=== PATIENT | female | born 1975 | race Native Hawaiian/Other Pacific Islander ===

== ENCOUNTER 2016-10-10 11:35 | Emergency (ER) | payer BC ==
[2016-10-10] MEDS ORDERED: Sodium Chloride 0.9% 1000 ML 1,000 ML IV STA (12:19)
[2016-10-10] MEDS ORDERED: TORAdol 30 mg Injection IV ONE (12:19)
[2016-10-10] MEDS ORDERED: Ativan 2 MG/1 ML VIAL IV ONE (12:20)
[2016-10-10] MEDS ORDERED: TORAdol 30 mg Injection ONE (12:30)
[2016-10-10] MEDS ORDERED: Sodium Chloride 0.9% 1000 ML 1,000 ML ONE (12:31)
[2016-10-10] MEDS ORDERED: Ativan 2 MG/1 ML VIAL ONE (12:31)
[2016-10-10 12:37] LABS: Lactic Acid 2.4 (0.4-2.0)
--- NOTE | 2016-10-10 12:42 | ERPHSYRPT ---
- History of Present Illness Time Seen by Provider: 10/10/16 12:11 Source: patient, family (sister) Patient Subjective Stated Complaint: pt states she has been depressed and not taking care of herself. she states she feels bad with a sore throat and cough. pt denies wanting to hurt herself. states she is shakey. states she is having a fibromyalgia flare-up. Triage Nursing Assessment: pt flushed, moist warm, dry. pt alert and oriented x3. pt crying and shaking. 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 She has hx of depression and anxiety. Worse lately. Ran out of her xanax a week ago but only takes it occasionally. She takes cymbalta, meloxicam, wellbutrin but has forgotten to take them in the past 3-4 days. She feels more depression. No suicide ideation. She has felt ill for one week. Chills, sweats, aches, mylagias. Feels like a fibromyalgia attack/flare. She has been upset. ALL: None Social: Nonsmoker, works retail, LMP 1 week ago. Allergies/Adverse Reactions: sulfamethoxazole [From Bactrim] Allergy (Verified 10/10/16 12:21) trimethoprim [From Bactrim] Allergy (Verified 10/10/16 12:21) Home Medications: Alprazolam 0.25 mg [xanAX 0.25 MG] 0.25 mg PO TIDPRN PRN 10/10/16 [History ] Bupropion HCl [Wellbutrin Sr] 0 mg PO DAILY 10/10/16 [History] Duloxetine HCl [Cymbalta] 60 mg PO DAILY 10/10/16 [History] Hx Tetanus, Diphtheria Vaccination/Date Given: Yes (up to date) Hx Influenza Vaccination/Date Given: No Hx Pneumococcal Vaccination/Date Given: No Immunizations Up to Date: Yes - Review of Systems Constitutional: Chills, Fatigue, Malaise, Weakness, No Fever Eyes: No Symptoms Ears, Nose, & Throat: Throat Pain Respiratory: No Cough Cardiac: No Chest Pain Abdominal/Gastrointestinal: Nausea, Diarrhea (intermittent), No Abdominal Pain Genitourinary Symptoms: No Dysuria Musculoskeletal: Myalgias, No Back Pain, No Injury Skin: No Rash Neurological: Headache, No Focal Weakness, No Parasthesia Psychological: Anxiety, Depression, Emotional Lability All Other Systems: Reviewed and Negative - Past Medical History Pertinent Past Medical History: Yes Musculoskeletal History: Fibromyalgia, Osteoarthritis, Rheumatoid Arthritis Psycho-Social History: Depression - Past Surgical History Past Surgical History: No - Social History Smoking Status: Never smoker Exposure to second hand smoke: No Drug Use: none Patient Lives Alone: No - Female History Hx Last Menstrual Period: 3 days ago - Nursing Vital Signs Nursing Vital Signs: Initial Vital Signs Temperature 99.5 F Temperature Source Rectal Pulse Rate 110 Respiratory Rate 20 Blood Pressure [Right Arm] 125/70 Pain Intensity 5 - Physical Exam General Appearance: alert, other (anxious, shaky) Eye Exam: PERRL/EOMI Ears, Nose, Throat Exam: normal ENT inspection, moist mucous membranes Neck Exam: normal inspection, non-tender, supple Respiratory Exam: normal breath sounds, lungs clear Cardiovascular Exam: regular rate/rhythm, No murmur Gastrointestinal/Abdomen Exam: soft, No tenderness, No distention, No mass, No guarding Back Exam: normal inspection Extremity Exam: normal inspection, normal range of motion Neurologic Exam: alert, oriented x 3, cooperative, sensation nml, No motor deficits Skin Exam: warm, dry, No rash SpO2 Interpretation: normal SpO2: 100 Oxygen Delivery: Room Air - Course Nursing assessment & vital signs reviewed: Yes - Radiology Exams cxr X-ray Interpretation: Teleradiologist Report (hyperinflated lungs) Ordered Tests: Active Orders 24 hr Category Date Time Status Clean Catch Urine Specimen STAT Care 10/10/16 12:19 Active IV Insertion STAT Care 10/10/16 12:19 Active CHEST 2 VIEWS (PA AND LAT) Stat Exams 10/10/16 12:19 Completed CBC W DIFF Stat Lab 10/10/16 12:35 Completed CMP Stat Lab 10/10/16 12:35 Completed CULTURE, THROAT Stat Lab 10/10/16 12:35 Received HCG QUALITATIVE,SERUM Stat Lab 10/10/16 12:35 Completed Lactic Acid Stat Lab 10/10/16 12:35 Results STREP SCREEN-BETA A Stat Lab 10/10/16 12:35 Completed UA W/ MICROSCOPIC Stat Lab 10/10/16 12:19 Completed Urine Triage Profile Stat Lab 10/10/16 12:19 Completed Medication Summary Discontinued Medications Generic Name Dose Route Start Last Admin Trade Name Brandon PRN Reason Stop Dose Admin Sodium Chloride 1,000 mls @ 999 mls/hr 10/10/16 12:19 10/10/16 12:33 Sodium Chloride 0.9% 1000 Ml IV 10/10/16 13:19 999 mls/hr .Q1H1M STA Administration Sodium Chloride Confirm 10/10/16 12:31 Sodium Chloride 0.9% 1000 Ml Administered 10/10/16 12:32 Dose 1,000 mls @ ud .ROUTE .STK-MED ONE Ketorolac Tromethamine 30 mg 10/10/16 12:19 10/10/16 12:33 Toradol 30 Mg Injection IV 10/10/16 12:20 30 mg STAT ONE Administration Ketorolac Tromethamine Confirm 10/10/16 12:30 Toradol 30 Mg Injection Administered 10/10/16 12:31 Dose 30 mg .ROUTE .STK-MED ONE Lorazepam 1 mg 10/10/16 12:20 10/10/16 12:33 Ativan 2 Mg/1 Ml Vial IV 10/10/16 12:21 1 mg STAT ONE Administration Lorazepam Confirm 10/10/16 12:31 Ativan 2 Mg/1 Ml Vial Administered 10/10/16 12:32 Dose 2 mg .ROUTE .STK-MED ONE Lab/Rad Data: Laboratory Result Diagrams 10/10/16 12:35 10/10/16 12:35 Laboratory Results 10/10/16 10/10/16 10/10/16 Range/Units 12:35 12:35 12:35 WBC (4.0-10.5) K/mm3 RBC (4.1-5.4) M/mm3 Hgb (12.0-16.0) gm/dl Hct (35-47) % MCV (78-100) fl MCH (26-32) pg MCHC (32-36) g/dl RDW (11.5-14.0) % Plt Count (150-450) K/mm3 MPV (6-9.5) fl Gran % (36.0-66.0) % Lymphocytes % (24.0-44.0) % Monocytes % (0.0-12.0) % Eosinophils % (0.00-5.0) % Basophils % (0.0-0.4) % Basophils # (0-0.4) Sodium (136-145) mEq/L Potassium (3.5-5.1) mEq/L Chloride (98-107) mEq/L Carbon Dioxide (21-32) mEq/L Anion Gap (5-15) MEQ/L BUN (9-20) mg/dL Creatinine (0.55-1.30) mg/dl Estimated GFR ML/MIN Glucose (70-110) MG/DL Lactic Acid (0.4-2.0) Calcium (8.5-10.1) mg/dL Total Bilirubin (0.2-1.0) mg/dL AST (15-37) U/L ALT (12-78) U/L Alkaline Phosphatase (46-116) U/L Serum Total Protein (6.4-8.2) gm/dL Albumin (3.4-5.0) g/dL Serum , Qual NEGATIVE (Negative) Ur Collection Type Urine Color (YELLOW) Urine Appearance (CLEAR) Urine pH (5-6) Ur Specific Douglas (1.005-1.025) Urine Protein (Negative) Urine Ketones (NEGATIVE) Urine Blood (0-5) Jack/ul Urine Nitrite (NEGATIVE) Urine Bilirubin (NEGATIVE) Urine Urobilinogen (0-1) mg/dL Ur Leukocyte Esterase (NEGATIVE) Urine Microscopic RBC (0-2) /HPF Urine Microscopic WBC (0-5) /HPF Ur Epithelial Cells (FEW) /HPF Urine Bacteria (NEGATIVE) /HPF Urine Mucus (NEGATIVE) /HPF Urine Glucose (NEGATIVE) mg/dL Urine Opiates Level (NEGATIVE) Ur Methadone (NEGATIVE) Urine Barbiturates (NEGATIVE) Ur Phencyclidine (PCP) (NEGATIVE) Urine Amphetamine (NEGATIVE) U Benzodiazepine Level (NEGATIVE) Urine Cocaine (NEGATIVE) Urine Marijuana (THC) (NEGATIVE) Influenza Type A Ag NEGATIVE (NEGATIVE) Influenza Type B Ag NEGATIVE (NEGATIVE) RSV (PCR) NEGATIVE (Negative) Streptococcus Screen NEGATIVE (Negative) Specimen Received 10/10/16 10/10/16 10/10/16 Range/Units 12:35 12:35 12:35 WBC 8.1 (4.0-10.5) K/mm3 RBC 4.42 (4.1-5.4) M/mm3 Hgb 14.1 (12.0-16.0) gm/dl Hct 41.6 (35-47) % MCV 94.1 (78-100) fl MCH 31.9 (26-32) pg MCHC 33.9 (32-36) g/dl RDW 13.2 (11.5-14.0) % Plt Count 378 (150-450) K/mm3 MPV 8.7 (6-9.5) fl Gran % 73.9 H (36.0-66.0) % Lymphocytes % 18.4 L (24.0-44.0) % Monocytes % 6.8 (0.0-12.0) % Eosinophils % 0.5 (0.00-5.0) % Basophils % 0.4 (0.0-0.4) % Basophils # 0.03 (0-0.4) Sodium 139 (136-145) mEq/L Potassium 3.7 (3.5-5.1) mEq/L Chloride 98 (98-107) mEq/L Carbon Dioxide 25.1 (21-32) mEq/L Anion Gap 19.5 H (5-15) MEQ/L BUN 5 L (9-20) mg/dL Creatinine 0.73 (0.55-1.30) mg/dl Estimated GFR > 60 ML/MIN Glucose 112 H (70-110) MG/DL Lactic Acid 2.4 H (0.4-2.0) Calcium 9.9 (8.5-10.1) mg/dL Total Bilirubin 0.40 (0.2-1.0) mg/dL AST 48 H (15-37) U/L ALT 45 (12-78) U/L Alkaline Phosphatase 95 (46-116) U/L Serum Total Protein 9.0 H (6.4-8.2) gm/dL Albumin 4.6 (3.4-5.0) g/dL Serum , Qual (Negative) Ur Collection Type Urine Color (YELLOW) Urine Appearance (CLEAR) Urine pH (5-6) Ur Specific Douglas (1.005-1.025) Urine Protein (Negative) Urine Ketones (NEGATIVE) Urine Blood (0-5) Jack/ul Urine Nitrite (NEGATIVE) Urine Bilirubin (NEGATIVE) Urine Urobilinogen (0-1) mg/dL Ur Leukocyte Esterase (NEGATIVE) Urine Microscopic RBC (0-2) /HPF Urine Microscopic WBC (0-5) /HPF Ur Epithelial Cells (FEW) /HPF Urine Bacteria (NEGATIVE) /HPF Urine Mucus (NEGATIVE) /HPF Urine Glucose (NEGATIVE) mg/dL Urine Opiates Level (NEGATIVE) Ur Methadone (NEGATIVE) Urine Barbiturates (NEGATIVE) Ur Phencyclidine (PCP) (NEGATIVE) Urine Amphetamine (NEGATIVE) U Benzodiazepine Level (NEGATIVE) Urine Cocaine (NEGATIVE) Urine Marijuana (THC) (NEGATIVE) Influenza Type A Ag (NEGATIVE) Influenza Type B Ag (NEGATIVE) RSV (PCR) (Negative) Streptococcus Screen (Negative) Specimen Received 10/10/16 10/10/16 Range/Units 12:19 12:19 WBC (4.0-10.5) K/mm3 RBC (4.1-5.4) M/mm3 Hgb (12.0-16.0) gm/dl Hct (35-47) % MCV (78-100) fl MCH (26-32) pg MCHC (32-36) g/dl RDW (11.5-14.0) % Plt Count (150-450) K/mm3 MPV (6-9.5) fl Gran % (36.0-66.0) % Lymphocytes % (24.0-44.0) % Monocytes % (0.0-12.0) % Eosinophils % (0.00-5.0) % Basophils % (0.0-0.4) % Basophils # (0-0.4) Sodium (136-145) mEq/L Potassium (3.5-5.1) mEq/L Chloride (98-107) mEq/L Carbon Dioxide (21-32) mEq/L Anion Gap (5-15) MEQ/L BUN (9-20) mg/dL Creatinine (0.55-1.30) mg/dl Estimated GFR ML/MIN Glucose (70-110) MG/DL Lactic Acid (0.4-2.0) Calcium (8.5-10.1) mg/dL Total Bilirubin (0.2-1.0) mg/dL AST (15-37) U/L ALT (12-78) U/L Alkaline Phosphatase (46-116) U/L Serum Total Protein (6.4-8.2) gm/dL Albumin (3.4-5.0) g/dL Serum , Qual (Negative) Ur Collection Type CLEAN CATCH Urine Color YELLOW (YELLOW) Urine Appearance CLEAR (CLEAR) Urine pH 8.0 (5-6) Ur Specific Douglas 1.000 (1.005-1.025) Urine Protein NEGATIVE (Negative) Urine Ketones SMALL (NEGATIVE) Urine Blood 5-10 (0-5) Jack/ul Urine Nitrite NEGATIVE (NEGATIVE) Urine Bilirubin NEGATIVE (NEGATIVE) Urine Urobilinogen NORMAL (0-1) mg/dL Ur Leukocyte Esterase NEGATIVE (NEGATIVE) Urine Microscopic RBC 2-5 (0-2) /HPF Urine Microscopic WBC 0-2 (0-5) /HPF Ur Epithelial Cells FEW (FEW) /HPF Urine Bacteria FEW (NEGATIVE) /HPF Urine Mucus SLIGHT (NEGATIVE) /HPF Urine Glucose NEGATIVE (NEGATIVE) mg/dL Urine Opiates Level NEG. (NEGATIVE) Ur Methadone NEG. (NEGATIVE) Urine Barbiturates NEG. (NEGATIVE) Ur Phencyclidine (PCP) NEG. (NEGATIVE) Urine Amphetamine NEG. (NEGATIVE) U Benzodiazepine Level NEG. (NEGATIVE) Urine Cocaine NEG. (NEGATIVE) Urine Marijuana (THC) NEG. (NEGATIVE) Influenza Type A Ag (NEGATIVE) Influenza Type B Ag (NEGATIVE) RSV (PCR) (Negative) Streptococcus Screen (Negative) Specimen Received [id number] - Progress Progress Note: 10/10/16 14:31 She feels better after meds and fluids. Labs reassuring. Flu negative. Likely some degree of withdrawal and possibly some degree of viral syndrome. She is resting. Still some tachycardia. Drinking water. Will release with instr. She wants to take hydroxyzine as it helped her here. Counseled pt/family regarding: lab results, diagnosis, need for follow-up, rad results - Departure Time of Disposition: 14:32 Departure Disposition: Home Clinical Impression: Viral syndrome, Anxiety, generalized Condition: Fair Critical Care Time: No Referrals: ADRIANO ACUNA [Primary Care Provider] - Instructions: Viral Syndrome, Anxiety -- Adult Additional Instructions: Follow up Wed with YOVANY Acuna. Rx hydroxyzine- no driving or operating machinery. Return for problems or concerns. Prescriptions: Hydroxyzine HCl 1 tab PO Q6H PRN PRN #15 tablet PRN Reason: rash,rest
[2016-10-10 12:53] LABS: BASOPHIL % 0.4 % (0.0-0.4); Eosinophil % 0.5 % (0.00-5.0); Granulocytes % 73.9 % (36.0-66.0); Lymphocytes % 18.4 % (24.0-44.0); Mean Cell Volume 94.1 fl (78-100); Mean Corpuscular Hemoglobin 31.9 pg (26-32); Mean Platelet Volume 8.7 fl (6-9.5); Monocytes % 6.8 % (0.0-12.0); Platelet Count 378 K/mm3 (150-450); Red Blood Count 4.42 M/mm3 (4.1-5.4); Red Cell Distribution Width 13.2 % (11.5-14.0); White Blood Count 8.1 K/mm3 (4.0-10.5)
[2016-10-10 13:01] LABS: ADD URINE CULTURE? NO (NO); Bacteria FEW /HPF (NEGATIVE); Bilirubin NEGATIVE (NEGATIVE); COMPLETE URINE MICROSCOPIC? YES; Collection Type CLEAN CATCH; Epithelial Cells FEW /HPF (FEW); Glucose NEGATIVE (NEGATIVE); Leukocyte Esterase NEGATIVE (NEGATIVE); Mucus SLIGHT /HPF (NEGATIVE); WBC 0-2 /HPF (0-5)
--- NOTE | 2016-10-10 13:10 | XRAY ---
Indication: Cough. Comparison: None PA/lateral chest hyperinflated and clear. Heart and mediastinal structures within normal limits. Bony thorax intact with minimal spinal degenerative changes. Impression: Nonacute hyperinflated chest.
[2016-10-10 13:12] LABS: ALBUMIN 4.6 g/dL (3.4-5.0); ALKALINE PHOSPHATASE 95 U/L (46-116); ANION GAP 19.5 MEQ/L (5-15); BLOOD UREA NITROGEN 5 mg/dL (9-20); CHLORIDE 98 mEq/L (98-107); Carbon Dioxide 25.1 mEq/L (21-32); Glucose 112 MG/DL (70-110); Potassium 3.7 mEq/L (3.5-5.1); SGOT/AST 48 U/L (15-37); SGPT/ALT 45 U/L (12-78); SODIUM 139 mEq/L (136-145)
[2016-10-10 14:35] VITALS: O2SAT 100
[2016-10-10 15:02] VITALS: BP 126/87; PULSE 115
== END 2016-10-10 14:59 | disposition home or self-care (01) ==
LOC: ED 11:35
DX: B34.9 Viral infection, unspecified (principal); F41.9 Anxiety disorder, unspecified; R53.1 Weakness; R11.0 Nausea; R19.7 Diarrhea, unspecified; M79.7 Fibromyalgia; R51 Headache; Z79.899 Other long term (current) drug therapy
CPT/HCPCS: 36000; 36415; 71020; 80053; 80307; 81000; 83605; 84703; 85025; 87070; 87430; 87631; 96360; 96374; 96375; 99284; J1885; J2060